=== PATIENT | female | born 2000 | race African-American/Black ===

== ENCOUNTER 2018-11-03 09:34 | Emergency (ER) | payer BC, OTHER ==
[2018-11-03 11:35] LABS: Bilirubin Negative (Negative); Blood, Urine Large (Negative); Clarity CLOUDY (Clear); Glucose, Urine (Dipstick) Negative (Negative); Leukocyte Negative (Negative); Nitrite Negative (Negative); Protein, Urine (Dipstick) Trace mg/dL (Neg-Trace); Specific Gravity, Urine 1.029 (1.002-1.036)
[2018-11-03 11:38] LABS: Bacteria/HPF None Seen HPF (None Seen); Hyaline Casts/LPF 0-3 HYALINE CAST LPF (0-3 Hyaline); Pathc Cast-AUWi Flag 0.29 (0-2.49); RBC/HPF GREATER THAN 50-TNTC HPF (0-3); Squamous Epithelial 0-3 HPF (0-3); WBC/HPF 0-3 HPF (0-3)
== END 2018-11-03 12:30 | disposition home or self-care (01) ==
LOC: ERS 09:34
DX: N93.9 Abnormal uterine and vaginal bleeding, unspecified (principal)
CPT/HCPCS: 36415; 81003; 81015; 84702; 86900; 86901; 99284

== ENCOUNTER 2020-07-26 11:28 | Inpatient (IN) | payer OTHER ==
[~2020-07-26 11:28] MED LIST: Bupivacaine 0.25% HCL 30 ML VIAL ONE; Bupivacaine HCl 0.5%/Epinephrine 1:200,000/PF 30 ml Vial ONE
[2020-07-26 12:51] VITALS: BMI 43.7
[2020-07-26] MEDS ORDERED: NS / Oxytocin 40 units/1000ml 1,000 ML IV PRN (12:52)
[2020-07-26] MEDS ORDERED: Ondansetron PF 4 MG/2 ML Vial IVP PRN (12:52)
[2020-07-26] MEDS ORDERED: Ibuprofen 800 MG TAB PO PRN (12:52)
[2020-07-26] MEDS ORDERED: HYDROcodone/Acetaminophen 5/325 mg Tablet PO PRN (12:52)
[2020-07-26] MEDS ORDERED: Lidocaine 1% (PF) 30 ML VIAL SC PRN (12:52)
[2020-07-26] MEDS ORDERED: NS w/ Oxytocin 10 units 500 ML IV SCH (13:00)
[2020-07-26] MEDS ORDERED: Penicillin G Potassium 5 MILL.UNITS in Sodium Chloride 0.9% 100 ML IVPB SCH (13:00)
[2020-07-26] MEDS ORDERED: Labetalol HCl 100 MG/20 ML VIAL ONE (13:01)
[2020-07-26 13:36] LABS: Hemoglobin 8.6 g/dL (12.0-16.0); Mean Corpuscular HGB CONC 32.4 g/dL (32.0-36.0); Mean Corpuscular Hemoglobin 19.8 pg (27.0-31.0); Mean Corpuscular Volume 61.1 fL (78.0-98.0); Mean Platelet Volume 7.3 fL (7.4-10.4); Platelet Count 339 thou/uL (130-400); RBC Distribution Width 19.7 % (11.5-14.5); Red Blood Cell (RBC) Count 4.37 mill/uL (4.20-5.40); White Blood Cell (WBC) Count 10.3 thou/uL (4.8-10.8)
[2020-07-26] MEDS ORDERED: Calcium Gluc 4.6 MEQ/10 ML (100 MG/ML) SLOW IVP PRN (13:53)
[2020-07-26] MEDS ORDERED: Magnesium Sulfate 20 GM/WATER 500 ML BAG IVPB SCH (14:00)
[2020-07-26] MEDS ORDERED: Labetalol HCl 100 MG/20 ML VIAL SLOW IVP SCH (14:00)
[2020-07-26 14:14] LABS: Syphilis Antibody Nonreactive (Nonreactive); Syphilis Antibody Index 0.03 S/CO (<1.00 Non-Reactive)
[2020-07-26 14:16] LABS: HBSAg Index 0.14 S/CO (0-0.99); Hep B Surf Ag Non-Reactive S/CO (NonReactive)
[2020-07-26 14:24] LABS: ALT (SGPT) 18 U/L (8-55); AST (SGOT) 17 U/L (5-34); Albumin 2.8 g/dL (3.5-5.0); Alkaline Phosphatase 137 U/L (40-110); Anion Gap 14 mmol/L (10-20); BUN (Urea Nitrogen) 10 mg/dL (7.0-18.7); Bilirubin, Total 0.4 mg/dL (0.2-1.2); Calc. Creatinine Clearance 244 mL/min (70-130); Calcium 8.7 mg/dL (7.8-10.44); Carbon Dioxide 20 mmol/L (22-29); Chloride 106 mmol/L (98-107); Estimated GFR-MDRD Greater than 90; Glucose 71 mg/dL (70-105); Potassium 4.2 mmol/L (3.5-5.1); Protein, Total 5.8 g/dL (6.0-8.3); Sodium 136 mmol/L (136-145); Uric Acid 8.4 mg/dL (2.6-6.0)
[2020-07-26] MEDS: Magnesium Sulfate 20 gm/500 ml 20 GM/500 ML BAG IVPB SCH ×2 (14:25→22:02)
[2020-07-26] MEDS: hydrALAZINE 20 MG/ML VIAL SLOW IVP PRN ×2 (14:49→20:45)
[2020-07-26] MEDS ORDERED: hydrALAZINE 20 MG/ML VIAL SLOW IVP SCH (15:15)
[2020-07-26] MEDS ORDERED: hydrALAZINE 20 MG/ML VIAL SLOW IVP PRN (19:12)
[2020-07-26] MEDS: Lactated Ringer's 1,000 ML IV SCH (20:00)
[2020-07-26] MEDS: Penicillin G 2.5 MILL.units 2.5 MILL.UNITS in Premix Bag 1 BAG IVPB SCH (20:00)
[2020-07-26] MEDS: Misoprostol 100 MCG TAB VAG SCH ×2 (20:03→23:29)
[2020-07-26 20:31] LABS: SARS-CoV-2 MS2 Positive; SARS-CoV-2 N Gene Negative; SARS-CoV-2 S Gene Negative; SARS-CoV-2 by NAA Not Detected (NotDetected); SARS-CoV-2 orf1ab Negative
[2020-07-26] MEDS ORDERED: Acetaminophen 500 MG TAB PO SCH (20:45)
--- NOTE | 2020-07-26 21:22 | PDOC.EVN ---
Event Note - Event Note Event Note: Ms Sanchez is a 20yo g1 with iup at 39wks admitted for IOL secondary to preclampsia with severe features. She has required multiple doses of labetolol and hydrazine to manage her severe range BP. pitocin was started. but after most of the afternoon on pitocin pt felt little discomfort. We are attempting now to get her into labor with cytotec. Will watch bp closely as it seems to getting more difficult to treat. She has received are treating with dose of 20 of hydralizine and labetalol 40mg in the last hour.
[2020-07-27] MEDS: Penicillin G 2.5 MILL.units 2.5 MILL.UNITS in Premix Bag 1 BAG IVPB SCH ×5 (00:11→17:00)
[2020-07-27] MEDS: Butorphanol Tartrate 1 MG/ML VIAL SLOW IVP PRN ×2 (00:54→03:13)
[2020-07-27] MEDS: hydrALAZINE 20 MG/ML VIAL SLOW IVP PRN (01:04)
[2020-07-27] MEDS: Labetalol HCl 100 MG/20 ML VIAL SLOW IVP PRN ×5 (05:04→23:48)
--- NOTE | 2020-07-27 07:36 | PRG ---
DATE OF SERVICE: 07/27/2020 SUBJECTIVE: The patient is a 20-year-old female with an intrauterine at 39 weeks and a day, who was admitted yesterday for preeclampsia with severe features. The patient has been on magnesium for seizure prophylaxis. She has also required multiple doses of IV hydralazine and labetalol. Overnight, the patient has done fairly well, requiring only the two doses, one dose of labetalol and one dose of hydralazine since midnight. The patient was converted from Pitocin to Cytotec yesterday evening due to her unresponsiveness to the Pitocin. This morning, she is now 480 and -1 station. She was required a couple doses of Stadol overnight with Cytotec. The patient was switched over by the nursing staff to Pitocin around 4 o'clock this morning. The most recent blood pressure is 142/81, heart rate of 94, respiratory rate of 16, and temperature 97.6. In general, the patient appears somewhat uncomfortable, lying on her side. She does report her contractions are a little worse than they were yesterday with the Pitocin running, but not as bad as when the Cytotec was in place and actively working. heart tracing shows the fetus in the one teens with minimal to moderate variability, 15 x 15 accelerations as early as an hour ago. Contraction pattern is difficult to assess due to tracing issues, but appears to be about every 2 minutes. ASSESSMENT AND PLAN: The patient is a 20-year-old female with an intrauterine at 39 weeks and 1 day, admitted for preeclampsia with severe features. We will continue magnesium for seizure prophylaxis, IV labetalol and hydralazine as needed for blood pressure control, and we will move forward with Pitocin for labor augmentation. The patient is GBS positive on penicillin and is intact still. Job ID: [id number]
[2020-07-27] MEDS ORDERED: Fentanyl 4 mcg/Bup 0.1% Cadd 100 ML ONE ×2 (08:20→14:16)
[2020-07-27] MEDS ORDERED: FLU VACC QS2020-21(6MOS UP)/PF 60 MCG/0.5 ML SYRINGE IM ONE (09:00)
[2020-07-27] MEDS ORDERED: Acetaminophen 325 MG TAB PO PRN (09:14)
[2020-07-27] MEDS ORDERED: Promethazine HCl 25 MG/ML VIAL IM PRN (09:14)
[2020-07-27] MEDS ORDERED: Ondansetron PF 4 MG/2 ML Vial IVP PRN ×2 (09:14→18:37)
[2020-07-27] MEDS ORDERED: EPHEDRINE 25 MG/5 ML SYRINGE SLOW IVP PRN (09:14)
[2020-07-27] MEDS ORDERED: Naloxone HCl 0.4 mg/ml Vial IVP PRN ×2 (09:14)
[2020-07-27] MEDS ORDERED: diphenhydrAMINE 50 MG/ML VIAL IVP PRN (09:14)
[2020-07-27] MEDS ORDERED: Lactated Ringer's 500 ML IV PRN (09:14)
[2020-07-27] MEDS ORDERED: Communication Order-Pharmacy FS SCH (09:15)
[2020-07-27] MEDS: Fentanyl 4 mcg/Bupivacaine 0.1% Cassette 100 ML EPIDURAL SCH ×2 (09:15→14:31)
[2020-07-27] MEDS: Misoprostol 100 MCG TAB VAG SCH ×3 (14:31→17:00)
[2020-07-27] MEDS ORDERED: Bicitra 30 ML UDCUP PO SCH (16:15)
[2020-07-27] MEDS ORDERED: CEFAZOLIN 2 GM in Premix Bag 1 BAG IVPB SCH (16:15)
[2020-07-27] MEDS ORDERED: Azithromycin 500 MG in Sodium Chloride 0.9% 250 ML 250 ML IVPB SCH (16:15)
--- NOTE | 2020-07-27 16:15 | PRG ---
DATE OF SERVICE: 07/27/2020 TIME OF SERVICE: 1600 hours. Ms. Sanchez continues with a dysfunctional labor pattern. Her Pitocin got as high as 14. She has an IUPC in place. She had AROM this morning at approximately 0900 hours. At that point in time, she was 4, 90, -1 and currently, she is 5 to 6, complete, and -1 station. She has required multiple doses of antihypertensive for severe range pressures. monitoring has remained category 2. After discussion with the patient about her options and prognosis, decision was made in conjunction with the patient to proceed with primary delivery. There is a being taken back right now for primary CD for severe preeclampsia and breech presentation, and we will follow that case. Pitocin stopped at this time. IUPC will be removed. Job ID: [id number]
[2020-07-27] MEDS: Lactated Ringer's 1,000 ML IV SCH (16:59)
[2020-07-27] MEDS ORDERED: Ondansetron PF 4 MG/2 ML Vial ONE ×2 (17:17→17:28)
[2020-07-27] MEDS ORDERED: Ketorolac Tromethamine 30 MG/ML VIAL ONE ×2 (17:17→17:28)
[2020-07-27] MEDS ORDERED: PROPOFOL 200 MG/20 ML VIAL ONE (17:17)
[2020-07-27] MEDS ORDERED: Succinylcholine Chloride 20 MG/ML 10 ml SYRINGE FS ONE ×2 (17:17→17:59)
[2020-07-27] MEDS ORDERED: Dexamethasone 20 MG/5 ML VIAL ONE (17:17)
[2020-07-27] MEDS ORDERED: PHENYLEPHRINE-NS 100 MCG/ML 10 ML SYRINGE ONE (17:28)
[2020-07-27] MEDS ORDERED: ePHEDrine 50 MG/ML VIAL ONE (17:28)
[2020-07-27] MEDS ORDERED: Dexamethasone 4 mg/ml Vial ONE (17:28)
[2020-07-27] MEDS ORDERED: Oxytocin 10 UNITS/ML VIAL ONE (17:28)
[2020-07-27] MEDS ORDERED: PROPOFOL 20 ML ONE (17:59)
[2020-07-27] MEDS ORDERED: Fentanyl 100 MCG/2 ML VIAL ONE (18:00)
[2020-07-27] MEDS ORDERED: L&D-Morphine 4 MG/ML VIAL SLOW IVP PRN (18:27)
[2020-07-27] MEDS ORDERED: Ondansetron HCl/PF 4 MG/2 ML Vial IVP PRN (18:27)
[2020-07-27] MEDS ORDERED: HYDROmorphone 2 MG/ML VIAL SLOW IVP PRN (18:27)
[2020-07-27] MEDS ORDERED: Meperidine HCl/PF 25 MG/ML VIAL SLOW IVP PRN (18:27)
[2020-07-27] MEDS ORDERED: Ketorolac Tromethamine 30 MG/ML VIAL IVP SCH (18:30)
[2020-07-27] MEDS ORDERED: Lanolin Ointment 7 GM TUBE TOP PRN (18:37)
[2020-07-27] MEDS ORDERED: HYDROcodone/Acetaminophen 5/325 mg Tablet PO PRN ×2 (18:37)
[2020-07-27] MEDS ORDERED: Adacel (T-DAP) 0.5 ML SYRINGE IM ONE (18:37)
[2020-07-27] MEDS ORDERED: Simethicone Chewable 80 MG TAB PO PRN (18:37)
[2020-07-27] MEDS ORDERED: hydrALAZINE 20 MG/ML VIAL SLOW IVP PRN (18:37)
[2020-07-27] MEDS ORDERED: Calcium Gluconate 4.6 MEQ in Sodium Chloride 0.9% 100 ML IVPB PRN (18:37)
[2020-07-27] MEDS ORDERED: diphenhydrAMINE 25 MG CAP PO PRN (18:37)
[2020-07-27] MEDS ORDERED: Meperidine HCl/PF 25 MG/ML VIAL IM PRN (18:37)
[2020-07-27 18:40] LABS: Actual Bicarbonate (HCO3a) 20.2 mEq/L (22-28); Base Excess (BEa) -6.5 mEq/L (-2.0 to +3.0)
[2020-07-27 18:42] LABS: Actual Bicarbonate (HCO3v) 20 mEq/L (22-28); Base Excess -6.5 mEq/L (-2.0 to +3.0); pH (Cord, venous) 7.29 (7.32-7.43)
[2020-07-27] MEDS ORDERED: Magnesium Sulfate 20 gm/500 ml 20 GM/500 ML BAG IVPB SCH (18:45)
--- NOTE | 2020-07-27 19:01 | OP ---
DATE OF PROCEDURE: 07/27/2020 TIME OF SERVICE: 1800 hours. PREOPERATIVE DIAGNOSES: Severe preeclampsia, failure to progress, 39 weeks' gestation, category 2 tracing. POSTOPERATIVE DIAGNOSES: Severe preeclampsia, failure to progress, 39 weeks' gestation, category 2 tracing. PROCEDURE PERFORMED: Primary low-transverse section without extension. AGENT CONTRACT CLERK: Bhavik Samson DO, PGY-2. ANESTHESIA: General endotracheal. ESTIMATED BLOOD LOSS: Approximately 1000 mL. DRAINS: Santos to gravity. MEDICATIONS: 2 g Ancef and 500 Zithromax pre-incision. DVT PROPHYLAXIS: SCDs. FINDINGS: 1. Infant to nursery. Sex, weight, and Apgars per Neonatology pending. 2. Normal-appearing uterus, tubes, and ovaries bilaterally. 3. Hemostasis, clear urine. COUNTS: Correct at the end of the procedure. DISPOSITION: Recovery room in good condition. DESCRIPTION OF PROCEDURE: The patient was taken to the operating room and epidural that she had for labor was dosed up, but did not achieve the proper level, so the decision was made to proceed with general anesthesia. The patient received general endotracheal anesthesia in rapid sequence induction. A Pfannenstiel skin incision was made, carried down to the fascia, incised sharply, superiorly and laterally with curved Ayoub scissors. Rectus dissected off sharply, superiorly and inferiorly, divided in midline. Peritoneum was entered bluntly to avoid trauma to the underlying viscera. Yao O retractor was placed inside. Low-transverse hysterotomy was made just above the level of the vesicouterine peritoneal fold, extended superiorly and laterally with finger fractionization. The infant's head was elevated through hysterotomy and delivered on the surgical field. Cord clamped, cut, and handed off to the team in attendance. Cord gas and cord blood sample were obtained. Placenta was delivered manually and sent for pathologic analysis. Uterus was curetted out. Hysterotomy was noted to be without extension and closed using a running locking #1 Monocryl suture x2. Gutters were irrigated out bilaterally. We reinspected the hysterotomy and noted to be dry. No other areas of bleeding noted. The Yao O retractor was removed. Counts were correct. The rectus was inspected and noted to be dry. The fascia was approximated with running continuous 0 PDS suture x2. Subcutaneous tissue was irrigated and rendered hemostatic with Bovie cautery. Skin was reapproximated using 4-0 Monocryl and Dermabond. The patient entered into LICU care for severe preeclampsia postoperatively. Job ID: [id number]
[2020-07-28] MEDS: Magnesium Sulfate 20 gm/500 ml 20 GM/500 ML BAG IVPB SCH ×2 (05:24→15:36)
[2020-07-28 06:12] LABS: Mean Corpuscular HGB CONC 32.5 g/dL (32.0-36.0); Mean Corpuscular Hemoglobin 19.9 pg (27.0-31.0); Mean Corpuscular Volume 61.3 fL (78.0-98.0); Mean Platelet Volume 7.1 fL (7.4-10.4); Platelet Count 303 thou/uL (130-400); RBC Distribution Width 19.5 % (11.5-14.5); Red Blood Cell (RBC) Count 4.02 mill/uL (4.20-5.40); White Blood Cell (WBC) Count 17.3 thou/uL (4.8-10.8)
[2020-07-28] MEDS: hydrALAZINE 20 MG/ML VIAL SLOW IVP PRN ×2 (06:46→19:51)
[2020-07-28] MEDS ORDERED: HYDROcodone/Acetaminophen 5/325 mg Tablet PO PRN (06:51)
[2020-07-28] MEDS ORDERED: Meperidine HCl/PF 25 MG/ML VIAL IM PRN (06:51)
--- NOTE | 2020-07-28 07:43 | PRG ---
DATE OF SERVICE: 07/28/2020 TIME: 0715. SUBJECTIVE: Ms. Sanchez is doing well, approximately 10 hours post primary delivery with severe preeclampsia. She has no headache. Denies scotoma or right upper quadrant pain. OBJECTIVE: VITAL SIGNS: Blood pressures have remained problematic with systolics between 140s and 168. She received several doses of hydralazine overnight. Diastolics remained in the 90s. Urine output is increased from 30-40 mL an hour to 150-200 the last 2 hours. Urine is cleared as well. LUNGS: Clear to auscultation bilaterally. HEART: Regular rate and rhythm. BREASTS: No masses bilaterally. ABDOMEN: Soft, nontender. Incision, intact and dry. Fundus firm. Lochia normal. EXTREMITIES: With no clubbing or cyanosis. Moderate edema. LABORATORY DATA: The patient's magnesium level post delivery was 8.3; hematocrit this morning is 24.6, down from 26.7; platelet count is 303. IMPRESSION: Severe preeclampsia at 39 weeks' gestation, status post primary delivery with improving urine output, persistently elevated blood pressures. PLAN: Continue LICU care with magnesium sulfate. We will add Procardia XL on a daily basis to the patient's medication regimen. Anticipate discontinue mag and transfer to floor later this evening. The patient will be cared for by Dr. Petr Kapadia, OB hospitalist. Job ID: [id number]
[2020-07-28] MEDS: Lactated Ringer's 1,000 ML IV SCH ×2 (07:57→16:07)
[2020-07-28] MEDS: Misoprostol 100 MCG TAB VAG SCH ×3 (07:57→16:03)
[2020-07-28] MEDS: Penicillin G 2.5 MILL.units 2.5 MILL.UNITS in Premix Bag 1 BAG IVPB SCH ×2 (07:58→16:03)
[2020-07-28] MEDS: NIFEdipine XL 30 MG TAB PO SCH (08:08)
--- NOTE | 2020-07-28 12:41 | PDOC.BPN ---
- Brief Progress Note Encounter Date: 07/28/20 Encounter Time: 12:30 BPs reviewed now PP. Procardia given prior. I will give lasix 20mg IV X 1 now for continued SBPs near 160 with SBP and DBP delta greater than 55
[2020-07-28] MEDS ORDERED: Furosemide 20 MG/2 ML VIAL SLOW IVP SCH (12:45)
--- NOTE | 2020-07-28 14:12 | PDOC.BPN ---
- Brief Progress Note Encounter Date: 07/28/20 Encounter Time: 14:10 SBPs still 160s...will order labetolol 20mg IV X 1 now
[2020-07-28] MEDS ORDERED: Labetalol HCl 100 MG/20 ML VIAL SLOW IVP SCH ×2 (14:15→20:45)
[2020-07-28] MEDS: HYDROcodone/Acetaminophen 5/325 mg Tablet PO PRN (15:38)
[2020-07-28] MEDS: Docusate Calcium (SURFAK) 240 MG CAP PO SCH (16:06)
--- NOTE | 2020-07-28 16:52 | PDOC.BPN ---
- Brief Progress Note Encounter Date: 07/28/20 Encounter Time: 17:00 At bedside. Feels well SCDs in use We will stop Mag and keene and get up to chair at 1800. Reg Diet
--- NOTE | 2020-07-28 20:44 | PDOC.BPN ---
- Brief Progress Note Encounter Date: 07/28/20 Encounter Time: 20:40 Patient still in L&D. Still with some severe range BPs. So, I have ordered another 20mg labetolol IV x 1 now. We will keep in L&D overnight for BP surveillance
[2020-07-29] MEDS: HYDROcodone/Acetaminophen 5/325 mg Tablet PO PRN ×3 (00:41→21:50)
[2020-07-29] MEDS: Prenatal Vitamin 1 TAB PO SCH ×2 (04:15→08:29)
[2020-07-29] MEDS: Penicillin G 2.5 MILL.units 2.5 MILL.UNITS in Premix Bag 1 BAG IVPB SCH ×2 (04:15→04:16)
[2020-07-29] MEDS: Misoprostol 100 MCG TAB VAG SCH ×2 (04:16→04:17)
[2020-07-29] MEDS: Lactated Ringer's 1,000 ML IV SCH ×4 (04:18→21:43)
[2020-07-29] MEDS: Docusate Calcium (SURFAK) 240 MG CAP PO SCH ×3 (04:18→21:42)
--- NOTE | 2020-07-29 05:02 | PDOC.PP ---
Post Progress Note Post Day #: POD2 s/p MagSulfate for 24 hrs Subjective: Feels well PO intake tolerated: yes Flatus: yes Ambulation: yes Vital Signs (12 hours) Temp Pulse Resp BP BP Pulse Ox 07/29/20 04:25 98.3 F 116 H 20 130/67 100 07/29/20 01:45 98.3 F 100 18 132/75 99 07/28/20 22:12 117 H 131/63 07/28/20 19:51 96 165/85 H Weight Weight 263 lb - Physical Examination General: NAD Respiratory: non-labored breathing Abdominal: appropriately TTP Extremities: negative homans (B) Skin: CS incision dry & intact Neurological: no gross focal deficits Psychiatric: A&Ox3, normal affect Result Diagrams: 07/28/20 05:58 07/26/20 13:19 Additional Labs: Post Labs Hep Bs Antigen Non-Reactive S/CO (NonReactive) 07/26/20 13:20 Blood Type O POSITIVE 07/26/20 13:19 (1) delivery delivered Code(s): O82 - ENCOUNTER FOR DELIVERY WITHOUT INDICATION Status: Acute (2) Severe pre-eclampsia Code(s): O14.10 - SEVERE PRE-ECLAMPSIA, UNSPECIFIED TRIMESTER Status: Acute - Assessment/Plan POD2 now off mag. Pulse is elevated but patient clinically well, I will check HH. Last 2 BPs are normal range while on PP. Continue daily procardia for now at 30mg XL Follow BPs
[2020-07-29 06:24] LABS: Hemoglobin 6.7 g/dL (12.0-16.0)
[2020-07-29] MEDS: Ketorolac Tromethamine 30 MG/ML VIAL IVP PRN ×2 (08:29→14:27)
[2020-07-29] MEDS: NIFEdipine XL 30 MG TAB PO SCH (08:29)
[2020-07-29] MEDS: ALPRAZolam 0.25 MG TAB PO PRN (16:34)
[2020-07-29] MEDS: Labetalol HCl 100 MG/20 ML VIAL SLOW IVP PRN (16:36)
[2020-07-30] MEDS: Lactated Ringer's 1,000 ML IV SCH ×3 (05:13→21:26)
[2020-07-30] MEDS: HYDROcodone/Acetaminophen 5/325 mg Tablet PO PRN ×3 (05:20→21:38)
[2020-07-30] MEDS: Penicillin G 2.5 MILL.units 2.5 MILL.UNITS in Premix Bag 1 BAG IVPB SCH (06:05)
[2020-07-30 06:46] LABS: Hemoglobin 7.3 g/dL (12.0-16.0); Mean Corpuscular HGB CONC 32.7 g/dL (32.0-36.0); Mean Corpuscular Hemoglobin 21.5 pg (27.0-31.0); Mean Corpuscular Volume 65.8 fL (78.0-98.0); Platelet Count 300 thou/uL (130-400); RBC Distribution Width 22.2 % (11.5-14.5); White Blood Cell (WBC) Count 13.6 thou/uL (4.8-10.8)
--- NOTE | 2020-07-30 08:17 | PRG ---
DATE OF SERVICE: 07/30/2020 SUBJECTIVE: The patient is postoperative day 2-3 status post section with severe preeclampsia. She had some episodes of anxiety and tachycardia yesterday, which were responding well to Zoloft and p.r.n. Xanax. She received 1 unit of PRBCs yesterday as well for anemia. Her hematocrit was 26% predelivery with down to 24% postoperative day #1, but with mobilization of extravascular fluid dropped to 19.4% on the morning of the and this morning is 22.3% with a normal platelet count of 300. OBJECTIVE: VITAL SIGNS: Temperature is 98.8, T-max 99, pulse 100, respirations 18, blood pressure 147/70, max blood pressure 162/86, on Procardia XL 30 mg p.o. q.a.m. HEENT: Within normal limits. LUNGS: Clear to auscultation bilaterally. HEART: Regular rate and rhythm. ABDOMEN: Soft and nontender. Bowel sounds positive. Incision, intact and dry. No erythema. No induration. EXTREMITIES: 1+ edema. IMPRESSION: 1. Severe preeclampsia with hypertension. 2. Anxiety. 3. Anemia secondary to chronic iron deficiency and acute blood loss. PLAN: 1. Continue Zoloft. 2. Increase Procardia to 60 p.o. q.a.m. 3. Anticipate discharge home on 07/31 now status post transfusion of 1 unit PRBCs. Job ID: [id number]
[2020-07-30] MEDS: Prenatal Vitamin 1 TAB PO SCH (08:59)
[2020-07-30] MEDS: Docusate Calcium (SURFAK) 240 MG CAP PO SCH ×2 (08:59→21:38)
[2020-07-30] MEDS: NIFEdipine XL 60 MG TAB PO SCH (08:59)
--- NOTE | 2020-07-30 10:07 | PDOC.BPN ---
<Natalee Mays - Last Filed: 07/30/20 10:05> - Brief Progress Note Encounter Date: 07/30/20 Encounter Time: 10:05 Pt has been tachycardia overnight and this morning >100-110's Pt c/o dizziness with movement and walking/exertion. denies SOB or CP. received one unit pRBC yesterday Hgb came up 0.6 of a gram, less than expected per units received. due to symptomatic anemia and inappropriate increase in hgb will transfuse one more unit pRBC Plan discussed with Dr. Villatoro who is in agreement with above states plan. <Eddi Villatoro - Last Filed: 07/30/20 10:16> Addendum - Attending - Attending Attestation Date/Time: 07/30/20 1013 I personally evaluated the patient and discussed the management with Dr. Mays. POD3 s/p C/s with EBL>1000 cc. S/p 1 unit RBC yesterday. Was dizzy this AM when up to BR. Will transfuse one more unit and check H/H. I agree with the History, Examination, Assessment and Plan documented above.
[2020-07-30 10:32] LABS: Hemoglobin 7.4 g/dL (12.0-16.0)
[2020-07-30] MEDS: ALPRAZolam 0.25 MG TAB PO PRN (12:01)
[2020-07-30 20:40] LABS: Hemoglobin 9.6 g/dL (12.0-16.0)
[2020-07-31] MEDS: Lactated Ringer's 1,000 ML IV SCH ×2 (06:01→17:01)
[2020-07-31] MEDS: HYDROcodone/Acetaminophen 5/325 mg Tablet PO PRN ×2 (06:04→11:58)
[2020-07-31 08:25] VITALS: TEMP 98.6
[2020-07-31] MEDS: Docusate Calcium (SURFAK) 240 MG CAP PO SCH (09:12)
[2020-07-31] MEDS: Prenatal Vitamin 1 TAB PO SCH (09:12)
[2020-07-31] MEDS: NIFEdipine XL 60 MG TAB PO SCH (09:13)
[2020-07-31] MEDS ORDERED: Ibuprofen 600 MG TAB PO PRN (09:19)
--- NOTE | 2020-07-31 09:25 | PDOC.EVN ---
Event Note - Event Note Event Note: Pt with Preeclampsia now post day 3 s/p 1cs. PT on procardia xl 60. BP last 24hrs 148-170 systolic. Most recent 158/78. Will add labetolol 100mg bid. During labor the combination worked better than either individually. Possible DC this afternoon.
[2020-07-31] MEDS ORDERED: Labetalol 100 MG TAB PO SCH ×4 (09:30→21:00)
[2020-07-31 16:59] VITALS: BP 152/80
== END 2020-07-31 20:45 | disposition home or self-care (01) | DRG 787 ==
LOC: L&D 11:28 → 3SE 07-29 01:45 → 3SW 07-29 17:37
PROVIDERS: ADMIT Obstetrics & Gynecology; ATTEND Obstetrics & Gynecology
PROC: 3E033VJ Introduction of Other Hormone into Peripheral Vein, Percutaneous Approach (ICD-10-PCS; 2020-07-26)
PROC: 10D00Z1 Extraction of Products of Conception, Low, Open Approach (ICD-10-PCS; principal; 2020-07-27)
PROC: 10H07YZ Insertion of Other Device into Products of Conception, Via Natural or Artificial Opening (ICD-10-PCS; 2020-07-27)
PROC: 30233N1 Transfusion of Nonautologous Red Blood Cells into Peripheral Vein, Percutaneous Approach (ICD-10-PCS; 2020-07-29)
DX: O14.14 Severe pre-eclampsia complicating childbirth (principal); O98.52 Other viral diseases complicating childbirth; D62 Acute posthemorrhagic anemia; O99.824 Streptococcus B carrier state complicating childbirth; Z3A.39 39 weeks gestation of pregnancy; Z37.0 Single live birth; Z20.828 Contact with and (suspected) exposure to other viral communicable diseases; B00.9 Herpesviral infection, unspecified; O32.1XX0 Maternal care for breech presentation, not applicable or unspecified; O62.0 Primary inadequate contractions; O16.5 Unspecified maternal hypertension, complicating the puerperium; O90.81 Anemia of the puerperium; O99.345 Other mental disorders complicating the puerperium; F41.9 Anxiety disorder, unspecified; Z79.899 Other long term (current) drug therapy; Z88.2 Allergy status to sulfonamides
CPT/HCPCS: 36415; 36430; 51702; 80053; 81003; 82805; 83735; 84550; 85014; 85018; 85027; 86780; 86850; 86900; 86901; 87340; 87635; 88307; J0360; J0456; J0595; J0690; J1100; J1885; J1940; J2270; J2405; J2540; J2590; J2704; J3010; J3475; J3490; J7050; P9016; S0020; U0003

== ENCOUNTER 2022-07-22 02:23 | Emergency (ER) | payer OTHER, SELFPAY | END 2022-07-22 06:52 | disposition home or self-care (01) | LOC: ERS 02:23 | DX: K02.9 Dental caries, unspecified (principal) | CPT/HCPCS: 99282 ==

== ENCOUNTER 2022-09-27 13:33 | Emergency (ER) | payer OTHER, SELFPAY ==
[2022-09-27 14:32] LABS: Hemoglobin 11.6 g/dL (12.0-16.0); Mean Corpuscular HGB CONC 35.5 g/dL (32.0-36.0); Mean Corpuscular Hemoglobin 23.3 pg (27.0-31.0); Mean Corpuscular Volume 65.6 fl (78.0-98.0); Mean Platelet Volume 9.5 fL (7.4-10.4); Platelet Count 436 10x3/uL (130-400); RBC Distribution Width 16.6 % (11.5-14.5); Red Blood Cell (RBC) Count 4.97 mill/uL (4.20-5.40); White Blood Cell (WBC) Count 10.7 10x3/uL (4.8-10.8)
[2022-09-27 14:51] LABS: ALT (SGPT) 8 U/L (8-55); AST (SGOT) 11 U/L (5-34); Acetaminophen Less than 10.0 mcg/mL (10.0-30.0); Albumin 4.1 g/dL (3.5-5.0); Alcohol Less than 10 mg/dL (Less than 10); Alkaline Phosphatase 89 U/L (40-110); Anion Gap 12 mmol/L (10-20); BUN (Urea Nitrogen) 10 mg/dL (7.0-18.7); Bilirubin, Total 0.5 mg/dL (0.2-1.2); Calc. Creatinine Clearance 0 mL/min (70-130); Calcium 9.3 mg/dL (7.8-10.44); Carbon Dioxide 23 mmol/L (22-29); Chloride 102 mmol/L (98-107); Estimated GFR 125; Globulin 4.1 g/dL (2.4-3.5); Glucose 85 mg/dL (70-105); Potassium 3.7 mmol/L (3.5-5.1); Protein, Total 8.2 g/dL (6.0-8.3); Salicylate Less than 8.0 mg/dL (15.0-30.0); Sodium 133 mmol/L (136-145)
[2022-09-27 14:55] LABS: #Basophils 0.1 thou/uL (0.0-0.2); #Eosinphils 0.3 thou/uL (0.0-0.7); #Lymphocytes 1.8 thou/uL (1.20-3.40); #Monocytes 0.3 thou/uL (0.11-0.59); #Neutrophils 8.2 thou/uL (1.40-6.50); %Basophils 0.7 % (0.0-1.0); %Eosinophils 2.7 % (0.0-10.0); %Lymphocytes 17.3 % (21.0-51.0); %Monocytes 2.8 % (0.0-10.0); %Neutrophils 76.5 % (42.0-75.0)
[2022-09-27 14:56] LABS: MDiff Complete? YES; Microcytosis SLIGHT = 6-15 cells (100X) (0-5/hpf); Platelet Morphology Comment Appears Increased
[2022-09-27 16:14] LABS: Bacteria/HPF None Seen HPF (None Seen); Bilirubin Negative (Negative); Blood, Urine Negative (Negative); Clarity Clear (Clear); Glucose, Urine (Dipstick) Normal (Negative); Ketone, Urine 10 mg/dL (Negative); Leukocyte 25 Leu/uL (Negative); Nitrite Negative (Negative); Protein, Urine (Dipstick) 200 mg/dL (Neg-Trace); RBC/HPF 0-3 HPF (0-3); Squamous Epithelial 0-3 HPF (0-3); Urobilinogen Normal mg/dL (Less than 2); pH, Urine 6.5 (5.0-9.0)
[2022-09-27 16:15] LABS: Pregnancy Test - Urine (BHCG) Negative (Negative); Pregu Control Background? CLEAR/WHITE (CLR/WHITE); Pregu Control Bar Appear? YES (CONTROL BAR)
[2022-09-27 16:22] LABS: Amphetamine Not Detected (NotDetected); Barbiturates Screen Not Detected (NotDetected); Benzodiazepine Screen Not Detected (NotDetected); Cocaine Metabolite Screen Not Detected (NotDetected); Methadone Not Detected (NotDetected); Methamphetamine Not Detected (NotDetected); Opiate Screen Not Detected (NotDetected); Oxycodone Screen Not Detected (NotDetected); Phencyclidine (PCP) Not Detected (NotDetected); THC/Cannabinoid Screen Detected (NotDetected); Tricyclic Screen Not Detected (NotDetected)
== END 2022-09-27 19:10 | disposition home or self-care (01) ==
LOC: ERS 13:33
DX: F32.A Depression, unspecified (principal); I10 Essential (primary) hypertension; E78.5 Hyperlipidemia, unspecified; Z79.899 Other long term (current) drug therapy
CPT/HCPCS: 36415; 80053; 80306; 80307; 81003; 81015; 81025; 84443; 85025; 99284

== ENCOUNTER 2023-05-31 15:23 | Emergency (ER) | payer OTHER, SELFPAY | END 2023-05-31 16:48 | disposition home or self-care (01) | LOC: ERS 15:23 | DX: K04.7 Periapical abscess without sinus (principal); I10 Essential (primary) hypertension; E78.5 Hyperlipidemia, unspecified | CPT/HCPCS: 99283 ==

== ENCOUNTER 2024-09-04 19:59 | Emergency (ER) | payer OTHER ==
[2024-09-04] MEDS ORDERED: Lidocaine Viscous Sol 2% 15 ml UD Cup ONE (20:32)
== END 2024-09-04 20:37 | disposition home or self-care (01) ==
LOC: ERS 19:59
DX: K04.7 Periapical abscess without sinus (principal); K02.9 Dental caries, unspecified; I10 Essential (primary) hypertension
CPT/HCPCS: 99282